=== PATIENT | female | born 1990 | race African-American/Black ===

== ENCOUNTER 2017-03-25 10:14 | Emergency (ER) | payer MEDICAID ==
[~2017-03-25 10:14] MED LIST: CEPH-460 PO; NAPR500 PO
[2017-03-25 10:16] VITALS: BP 122/76; PULSE 62; RESP 20; TEMP 98.7; O2SAT 98
== END 2017-03-25 13:21 | disposition left against medical advice (07) ==
LOC: NED 10:14
DX: T14.90 Injury, unspecified (principal); Y09 Assault by unspecified means
CPT/HCPCS: 99281

== ENCOUNTER 2017-06-02 08:52 | Emergency (ER) | payer MEDICAID ==
[~2017-06-02] VITALS: Ht 165.1 cm; Wt 93.5 kg
[2017-06-02 08:54] VITALS: BP 125/68; PULSE 65; RESP 13; TEMP 98.8; O2SAT 100
[2017-06-02] MEDS ORDERED: SODIUM CHLOR 0.9% 1000 ML INJ 1,000 ML IV ONE (09:08)
[2017-06-02 09:15] VITALS: O2SAT 100
[2017-06-02] MEDS ORDERED: ONDANSETRON HCL 4 MG/2 ML VIAL IVP ONE (09:15)
[2017-06-02] MEDS ORDERED: MORPHINE SULFATE 4 MG/ML INJ IV ONE (09:15)
[2017-06-02] MEDS ORDERED: SODIUM CHLORIDE 0.9% FLUSH 10 ML FLUSH IVF PRN (09:15)
[2017-06-02] MEDS ORDERED: DICY10 PO (09:30)
[2017-06-02] MEDS ORDERED: ZOFR4TAB PO (09:30)
--- NOTE | 2017-06-02 09:30 | PD ---
HPI . Vomiting Chief Complaint: GI Complaint Time Seen by Provider: 09:08 Travel History International Travel<30 days: No Contact w/Intl Traveler<30days: No Traveled to known affect area: No History of Present Illness HPI This patient presents with a four-day history of nausea, vomiting, diarrhea and abdominal cramping. She reports 2 episodes of emesis 4 days ago, 1 3 days ago, none 2 days ago and once yesterday. She states that she has been having approximately 3 episodes of loose stools per day. No fever. Her pain is described as cramping. She initially rated it as a 5. Just a few minutes later she stated that it was a 4. Just a few minutes after that she stated that it was 0. She is concerned that her symptoms are related to food that she ate 5 days ago. Otherwise, there have been no modifying factors. PFSH Past Medical History Diminished Hearing: No GERD: Yes Immunizations Current: Yes ?: Not LMP: 05/13/17 Past Surgical History Section: Yes Social History Alcohol Use: No Tobacco Use: No Substance Use: No Allergies-Medications (Allergen,Severity, Reaction): Coded Allergies: No Known Allergies (Unverified , 08/24/16) Reported Meds & Prescriptions Reported Meds & Active Scripts Active Bentyl (Dicyclomine HCl) 10 Mg Cap 20 Mg PO QID Zofran (Ondansetron HCl) 4 Mg Tab 4 Mg PO Q6HR PRN Review of Systems Except as stated in HPI: all other systems reviewed are Neg General / Constitutional: No: Fever, Chills Gastrointestinal: Positive: Nausea, Vomiting, Diarrhea, Abdominal Pain Genitourinary: No: Urgency, Frequency, Dysuria Physical Exam Narrative GENERAL: Patient is awake and alert using her cell phone in no acute distress. SKIN: warm/dry. No rashes. HEAD: Normocephalic. EYES: Pupils equal and round. No scleral icterus. No injection or drainage. ENT: No nasal bleeding or discharge. Mucous membranes pink and moist. NECK: Trachea midline. Full range of motion without pain.. CARDIOVASCULAR: Regular rate and rhythm. Heart sounds normal. RESPIRATORY: No accessory muscle use. Clear to auscultation. Breath sounds equal bilaterally. GASTROINTESTINAL: Abdomen soft. Nontender. Bowel sounds present. Nondistended. MUSCULOSKELETAL: No obvious deformities. NEUROLOGICAL: Awake and alert. No obvious cranial nerve deficits. Motor grossly within normal limits. Normal speech. PSYCHIATRIC: Appropriate mood and affect; insight and judgment normal. Data Data Last Documented VS Vital Signs Date Time Temp Pulse Resp B/P (MAP) Pulse Ox O2 Delivery O2 Flow Rate FiO2 06/02/17 09:37 63 16 114/80 (91) 100 Room Air 06/02/17 08:54 98.8 Orders Orders Urinalysis - C+S If Indicated (06/02/17 09:08) Iv Access Insert/Monitor (06/02/17 09:08) Ecg Monitoring (06/02/17 09:08) Oximetry (06/02/17 09:08) Morphine Inj (Morphine Inj) (06/02/17 09:15) Ondansetron Inj (Zofran Inj) (06/02/17 09:15) Sodium Chlor 0.9% 1000 Ml Inj (Ns 1000 M (06/02/17 09:08) Sodium Chloride 0.9% Flush (Ns Flush) (06/02/17 09:15) Ed Urine Pregnancytest Poc (06/02/17 09:08) Labs Laboratory Tests Test 06/02/17 09:29 Urine Color YELLOW Urine Turbidity HAZY Urine pH 6.5 Urine Specific Crozier 1.023 Urine Protein TRACE mg/dL Urine Glucose (UA) NEG mg/dL Urine Ketones NEG mg/dL Urine Occult Blood NEG Urine Nitrite NEG Urine Bilirubin NEG Urine Urobilinogen LESS THAN 2.0 MG/DL Urine Leukocyte Esterase TRACE Urine RBC 1 /hpf Urine WBC 2 /hpf Urine Squamous Epithelial Cells 24 /hpf Urine Bacteria OCC /hpf Urine Mucus FEW /lpf Microscopic Urinalysis Comment CULT NOT INDICATED MDM Medical Decision Making Medical Screen Exam Complete: Yes Emergency Medical Condition: Yes Differential Diagnosis Differential diagnosis includes but is not limited to viral gastritis, food poisoning, pancreatitis, pneumonia, hepatitis, acute coronary syndrome, Narrative Course This patient presents with a four-day history of abdominal cramping associated with nausea, vomiting and diarrhea. Her symptoms have been very minimal. Clinically, she is not dehydrated. I will treat her with a liter of fluid and IV Zofran and morphine. I anticipate rapid discharge. HCG is negative. UA is negative for infection. Diagnosis Primary Impression: Gastroenteritis Patient Instructions: Gastroenteritis (DC), General Instructions Med/Other Pt SpecificInfo: Prescription(s) given Scripts Dicyclomine (Bentyl) 10 Mg Cap 20 MG PO QID for Bowel Management, #6 CAP 0 Refills Prov: Cata Lee MD 06/02/17 Ondansetron (Zofran) 4 Mg Tab 4 MG PO Q6HR Y for NAUSEA OR VOMITING, #6 TAB 0 Refills Prov: Cata Lee MD 06/02/17 Disposition: 01 DISCHARGE HOME Condition: Stable Cata Lee MD Jun 02, 2017 09:30
[2017-06-02 09:37] VITALS: BP 114/80; PULSE 63; RESP 16; O2SAT 100
[2017-06-02 10:16] LABS: BACTERIA, URINE OCC /hpf; BLOOD, URINE NEG (NEG); COMMENT (UR) CULT NOT INDICATED; CULTURE IF INDICATED CULT NOT INDICATED; GLUCOSE,URINE NEG (NEG); KETONE, URINE NEG (NEG); MUCUS URINE FEW /lpf (OCC); NITRITE,URINE NEG (NEG); PH, URINE 6.5 (5.0-8.5); SQUAMOUS EPITHELIAL CELL URINE 24 /hpf (0-5); URINE COLOR YELLOW (YELLW/STRAW)
[2017-06-02 10:34] VITALS: BP 108/75
[2017-06-02 11:11] VITALS: RESP 14
== END 2017-06-02 10:49 | disposition home or self-care (01) ==
LOC: NEPD 08:52
DX: K52.9 Noninfective gastroenteritis and colitis, unspecified (principal); Z87.19 Personal history of other diseases of the digestive system
CPT/HCPCS: 81001; 84703; 96361; 96374; 96375; 99284; J2270; J2405; J7030

== ENCOUNTER 2017-08-09 07:56 | Emergency (ER) | payer MEDICAID ==
[~2017-08-09] VITALS: Ht 165.1 cm; Wt 86.0 kg
[~2017-08-09 07:56] MED LIST changes: -CEPH-460 PO; +DICY10 PO; -NAPR500 PO; +ZOFR4TAB PO
[2017-08-09 07:58] VITALS: BP 131/77; PULSE 66; RESP 16; TEMP 98.5; O2SAT 100
[2017-08-09] MEDS ORDERED: CHLO.12%30 SWISH-SPIT (08:24)
--- NOTE | 2017-08-09 08:27 | PD ---
HPI . Dentalgia Chief Complaint: ENT Complaint Time Seen by Provider: 08:09 Travel History International Travel<30 days: No Contact w/Intl Traveler<30days: No Traveled to known affect area: No History of Present Illness HPI 26-year-old female presents emergency department for evaluation after she cracked tooth #19 yesterday and subsequently has pain on the left side of her mouth. Patient denies any fever, chills, malaise, chest pain, shortness breath , abdominal pain, nausea, vomiting, diarrhea or lightheadedness. Patient denies any major medical history and doesn't take any daily medication. Patient states she did take ibuprofen this morning to help with the pain. PFSH Past Medical History Medical History: Denies Significant Hx Diminished Hearing: No GERD: Yes Immunizations Current: Yes Tetanus Vaccination: Unknown ?: Not LMP: 06/30/17 : 2 Para: 2 Past Surgical History Section: Yes (X2) Social History Alcohol Use: Yes (RARE ) Tobacco Use: Yes Substance Use: No Allergies-Medications (Allergen,Severity, Reaction): Coded Allergies: No Known Allergies (Unverified Adverse Reaction, Unknown, 08/09/17) Reported Meds & Prescriptions Reported Meds & Active Scripts Active Chlorhexidine Gluconate (Mouth) Liq (Chlorhexidine Gluconate) 0.12% Soln 15 Ml SWISH-SPIT BID Review of Systems Except as stated in HPI: all other systems reviewed are Neg Physical Exam Narrative GENERAL: Well-nourished, well-developed 26-year-old female patient in no acute distress. Nontoxic appearing. SKIN: Focused skin assessment warm/dry. HEAD: Normocephalic. Atraumatic EYES: No scleral icterus. No injection or drainage. MOUTH: Tooth #19 broken close to the base with the root of the tooth retained in the gums. No purulent drainage, erythema, gingival edema noted. Mucous membranes moist, no lesions, tongue and gums appear normal. NECK: Supple, trachea midline. No JVD or lymphadenopathy. CARDIOVASCULAR: Regular rate and rhythm without murmurs, gallops, or rubs. RESPIRATORY: Breath sounds equal bilaterally. No accessory muscle use. GASTROINTESTINAL: Abdomen soft, non-tender, nondistended. MUSCULOSKELETAL: No cyanosis, or edema. BACK: Nontender without obvious deformity. No CVA tenderness. Data Data Last Documented VS Vital Signs Date Time Temp Pulse Resp B/P (MAP) Pulse Ox O2 Delivery O2 Flow Rate FiO2 08/09/17 08:42 08/09/17 07:58 98.5 66 16 100 Room Air Orders Orders Ed Discharge Order (08/09/17 08:27) MDM Medical Decision Making Medical Screen Exam Complete: Yes Emergency Medical Condition: Yes Differential Diagnosis Differential diagnoses include but not limited to dentalgia, dental trauma, dental abscess, oral infection, gingivitis Narrative Course 26-year-old female presents emergency department for evaluation of left-sided mouth pain after she cracked and broke tooth #19 close to the base yesterday. There is no gingival edema, purulent drainage, erythema noted. Patient given a prescription for chlorhexidine mouthwash and instructed to follow-up with a dentist. Patient given information for [facility] to access a dental provider. Patient discharged home with instructions to return to the emergency Department with any worsening condition or signs or symptoms of infection. Diagnosis Primary Impression: Dentalgia Referrals: [facility] Patient Instructions: Acute Dental Trauma (ED), General Instructions Additional Instructions: Please return to emergency department if your symptoms return or worsen. Follow up with your primary care provider. Follow-up with [facility]. They have access to dental providers. Take medications as prescribed. May take [id number] ibuprofen or Tylenol as needed for pain or swelling. May use warm moist compress. Med/Other Pt SpecificInfo: Prescription(s) given Scripts Chlorhexidine Gluconate (Mouth) Liq (Chlorhexidine Gluconate (Mouth) Liq) 0.12% Soln 15 ML SWISH-SPIT BID, #473 ML 0 Refills Prov: Lou Hernandez Soha BOYD 08/09/17 Disposition: 01 DISCHARGE HOME Condition: Stable Lou Hernandez Soha BOYD Aug 09, 2017 08:27
[2017-08-09] MEDS ORDERED: IBUPROFEN 600 MG TAB PO ONE (08:30)
== END 2017-08-09 09:20 | disposition home or self-care (01) ==
LOC: NEPD 07:56
DX: K08.89 Other specified disorders of teeth and supporting structures (principal); K21.9 Gastro-esophageal reflux disease without esophagitis; Z72.0 Tobacco use
CPT/HCPCS: 99283